=== PATIENT | female | born 1950 | race Caucasian/White ===

== ENCOUNTER 2022-05-05 16:26 | Outpatient (CLI) | payer MEDICARE, SELFPAY ==
--- NOTE | ~2022-05-05 | MR_ITS ---
EXAMINATION: MR lumbar spine wo con DATE: 05/05/2022 17:14 INDICATION: Radiculopathy of lumbar region. TECHNIQUE: Magnetic resonance imaging (MRI) of the lumbar spine was performed without intravenous con trast. Sequences included sagittal T2-weighted FSE, sagittal T2-weighted FS FSE, sagittal T1-weighted FSE, and axial T2-weighted FSE. COMPARISON: None FINDINGS: There is 12 degrees levoscoliosis of lumbar spine. There is 3 mm retrolisthesis of L2 on L3 . There is mild chronic anterior wedging of T11 vertebral body. There is moderately decreased disc he ight at T11-T12 and L2-L3, severely decreased disc height at L3-L4, mildly decreased disc height at L 4-L5, and severely decreased disc height at L5-S1 with endplate remodeling. The distal spinal cord si gnal intensity is normal. The conus medullaris is at T12-L1. 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 There is a 4.1 cm cyst in the liver. The following disc levels are specifically discussed: L1-L2: The disc does not extend beyond the endplate margin. There is moderate bilateral facet joint o steoarthritis. There is no neural foraminal stenosis. There is no central canal stenosis. L2-L3: The disc is bulging. There is moderate bilateral facet joint osteoarthritis. There is mild ben ateral neural foraminal stenosis. There is mild central canal stenosis. L3-L4: The disc is bulging with superimposed central extrusion. There is severe bilateral facet joint osteoarthritis. There is mild bilateral neural foraminal stenosis. There is mild central canal steno sis. L4-L5: The disc is bulging. There is severe bilateral facet joint osteoarthritis. There is mild bilat eral neural foraminal stenosis. There is mild central canal stenosis. L5-S1: The disc is bulging with superimposed left subarticular zone extrusion. There is severe bilate ral facet joint osteoarthritis. There is mild bilateral neural foraminal stenosis. There is mild cent ral canal stenosis. IMPRESSION: 1. Severe lumbar spondylosis. 2. Lumbar levoscoliosis. Reviewed, dictated and finalized at location A. [employer]ING
== END 2022-05-05 16:27 | disposition home or self-care (01) ==
PROVIDERS: PCP Physician Assistant Medical; Visit Provider Physical Medicine & Rehabilitation
DX: M54.16 Radiculopathy, lumbar region (principal); M43.06 Spondylolysis, lumbar region; M41.86 Other forms of scoliosis, lumbar region
CPT/HCPCS: 72148

== ENCOUNTER → 2022-12-09 14:33 | Outpatient (CLI) | payer MEDICARE, SELFPAY ==
--- NOTE | ~2022-12-09 | MR_ITS ---
MRI of the left shoulder Technique: Axial proton-density fat-sat images, coronal proton density fat-sat and T2 fat-sat images, and sagittal T1-weighted and T2 fat-sat images were acquired. Clinical History: Pain, rotator cuff tear Findings: There is moderate AC joint degenerative change. Coracoclavicular, coracoacromial, and corac ohumeral ligaments are intact. There is focal probable moderate grade bursal surface tearing at the distal supraspinatus tendon inse rtion. There is background moderate supraspinatus and infraspinatus tendinosis. No partial or full-th ickness tear of the infraspinatus tendon identified. Subscapularis tendon is intact. Tendon of the lo ng head of the biceps is intact. Probable degenerative attenuation at the anterosuperior labrum, without definite discrete, detached l abral tear. Inferior glenohumeral ligament is intact. There is mild chondromalacia of the glenohumeral joint. The re are probable small loose bodies at the axillary pouch of the glenohumeral joint, measuring up to 5 mm (series 6 image 16). No fluid distention of the subacromial/subdeltoid bursa. No muscle atrophy o r edema. There is enthesopathic change at the humeral head at the rotator cuff insertion. Impression: Probable focal moderate grade bursal surface tear at the distal supraspinatus tendon insertion. Backg round moderate supraspinatus and infraspinatus tendinosis. 5 mm loose bodies in the axillary pouch of the glenohumeral joint, with small joint effusion. Probable degenerative attenuation of the anterosuperior labrum. Moderate AC joint degenerative change. Reviewed, dictated and finalized at location . Impression: Probable focal moderate grade bursal surface tear at the distal supraspinatus t endon insertion. Background moderate supraspinatus and infraspinatus tendinosis . 5 mm loose bodies in the axillary pouch of the glenohumeral joint, with small j oint effusion. Probable degenerative attenuation of the anterosuperior labrum. Moderate AC joint degenerative change.
== END ==
PROVIDERS: PCP Physician Assistant Medical; Visit Provider Orthopaedic Surgery
DX: M65.812 Other synovitis and tenosynovitis, left shoulder (principal); M24.012 Loose body in left shoulder; M19.012 Primary osteoarthritis, left shoulder
CPT/HCPCS: 73221

== ENCOUNTER 2023-08-14 13:07 | Outpatient (CLI) | payer MEDICARE, SELFPAY ==
--- NOTE | ~2023-08-14 | XR_ITS ---
XR pelvis min 3V DATE: 08/14/2023 13:35 INDICATION: Sacroiliitis TECHNIQUE: 3 views of pelvis COMPARISON: 02/17/2022 pelvis and bilateral hips FINDINGS: Status post bilateral total hip arthroplasty. Levoscoliosis and multilevel degenerative disc disease of the lumbar spine. Normal alignment at the p ubic symphysis and sacroiliac joints. No erosive change or ankylosis at the sacroiliac joints; mild d egenerative change at the sacroiliac joints. No pelvic fracture or bone destruction. IMPRESSION: Mild degenerative change at the sacroiliac joints; no erosive change or ankylosis Levoscoliosis and multilevel degenerative disc disease of the lumbar spine Bilateral total hip arthroplasty Osteopenia Reviewed, dictated and finalized at location B. IMPRESSION: Mild degenerative change at the sacroiliac joints; no erosive ferguson e or ankylosis Levoscoliosis and multilevel degenerative disc disease of the lumbar spine Bilateral total hip arthroplasty Osteopenia
--- NOTE | ~2023-08-14 | XR_ITS ---
Right Shoulder Technique: AP and axillary views were obtained. Clinical History: Osteoarthritis Findings: No fracture or dislocation is seen. Osseous alignment is anatomic. The glenohumeral and acr omioclavicular joint spaces are preserved. Soft tissues are unremarkable. Impression: Unremarkable right shoulder radiographs. Reviewed, dictated and finalized at [facility]. Impression: Unremarkable right shoulder radiographs.
== END 2023-08-14 13:08 ==
PROVIDERS: PCP Physical Medicine & Rehabilitation Pain Medicine; Visit Provider Physical Medicine & Rehabilitation Pain Medicine
DX: M19.011 Primary osteoarthritis, right shoulder (principal); M46.1 Sacroiliitis, not elsewhere classified; M41.86 Other forms of scoliosis, lumbar region; M51.36 Other intervertebral disc degeneration, lumbar region; Z96.643 Presence of artificial hip joint, bilateral; M85.88 Other specified disorders of bone density and structure, other site
CPT/HCPCS: 72190; 73030

== ENCOUNTER 2023-11-27 15:40 | Outpatient (CLI) | payer MEDICARE, SELFPAY ==
--- NOTE | ~2023-11-27 | CT_ITS ---
EXAMINATION: CT thoracic spine wo con DATE: 11/27/2023 16:03 INDICATION: Back pain. TECHNIQUE: Computed tomography (CT) of the thoracic spine was performed without intravenous contrast. Automated exposure control and iterative reconstruction technique were employed. The dose-length pro duct was 955.41 mGy-cm. COMPARISON: None FINDINGS: There is 14 degrees dextroscoliosis of thoracic spine. There is mild chronic anterior wedgi ng of T6-T8, T11, and T12 vertebral bodies. There is decreased disc height at most levels, severe at T1-T2, T2-T3, T6-T7, and T7-T8. There is multilevel facet joint osteoarthritis, severe at multiple le vels. There is mild neural foraminal stenosis at multiple levels bilaterally. On the right, there is moderate neural foraminal stenosis at T2-T3. On the left, there is moderate neural foraminal stenosis at T1-T2. There is mild central canal stenosis at T8-T9 and T9-T10. IMPRESSION: 1. Severe thoracic spondylosis. 2. Thoracic dextroscoliosis. Reviewed, dictated and finalized at location A.
== END 2023-11-27 15:41 | disposition home or self-care (01) ==
LOC: ANHIMG 15:43
PROVIDERS: PCP Physician Assistant Medical; Visit Provider Physical Medicine & Rehabilitation Pain Medicine
DX: M47.894 Other spondylosis, thoracic region (principal)
CPT/HCPCS: 72128

== ENCOUNTER 2024-02-23 09:59 | Outpatient (CLI) | payer MEDICARE, SELFPAY ==
--- NOTE | ~2024-02-23 | XR_ITS ---
Left Shoulder Technique: AP and axillary views were obtained. Clinical History: Pain Findings: No fracture or dislocation is seen. Osseous alignment is anatomic. The glenohumeral and acr omioclavicular joint spaces are preserved. Soft tissues are unremarkable. Impression: Unremarkable left shoulder radiographs. Reviewed, dictated and finalized at [facility]. Impression: Unremarkable left shoulder radiographs.
== END 2024-02-23 10:00 | disposition home or self-care (01) ==
PROVIDERS: PCP Physician Assistant Medical; Visit Provider Physical Medicine & Rehabilitation Pain Medicine
DX: M25.512 Pain in left shoulder (principal)
CPT/HCPCS: 73030